=== PATIENT | male | born 1950 | race Caucasian/White ===

== ENCOUNTER 2023-04-09 09:02 | Outpatient (REF) | payer MEDICARE, SELFPAY ==
--- NOTE | 2023-04-09 07:30 | SKI_PTH ---
PATIENT: Reinaldo Wilcox LOC: [facility] U#:[id number] AGE/SX: 73/M ROOM: RE04/09/[address]: Laith Mariano MD : 1950 BED: DIS: 04/09/2023 SPEC #: [id number] RECD: 04/09/23 17:36 STATUS: ROSEMARY REMel #: [id number] ANTELMO: 04/09/23 07:[address]: Laith Mariano DEPT: Surgical Specimen RECD BY: Amy Harrell ENTERED: 04/09/23 17:37 SP TYPE: YONNY ROSS DR: Weston Garvey Tissues: 1 - SKIN BIOPSY(SHAVE/PUNCH) 2 - SKIN BIOPSY(SHAVE/PUNCH) Procedures: SKIN LEVEL 4 Comments: [id number]
== END 2023-04-09 09:03 | disposition home or self-care (01) ==
LOC: LBN 09:02
PROVIDERS: PCP Family Medicine; Visit Provider Otolaryngology
DX: C44.222 Squamous cell carcinoma of skin of right ear and external auricular canal (principal)
CPT/HCPCS: 88305